=== PATIENT | female | born 1960 | race Caucasian/White ===

== ENCOUNTER → 2021-07-29 | Outpatient (CLI) | payer OTHER ==
--- NOTE | 2021-08-01 11:39 | MM ---
Reason for exam: clinical finding. Last mammogram was performed 1 year and 9 months ago. History: Patient is postmenopausal and has history of other cancer at age 28. Taking estrogen for 11 years. Taking progesterone for 11 years. Indicated problem(s): palpable abnormality and lump or thickening in the left breast. Physical Findings: A clinical breast exam by your physician is recommended on an annual basis and results should be correlated with mammographic findings. MG Diagnostic Mammo w CAD AUNG Bilateral CC and MLO view(s) were taken. XCCL view(s) were taken of the left breast. Prior study comparison: October 21, 2019, mammogram, performed at [facility]. October 02, 2016, mammogram, performed at [facility]. The breast tissue is heterogeneously dense. This may lower the sensitivity of mammography. Left axillary tail mass measuring 2.3 x 1.4cm This finding is changed when compared with previous exams. These results were verbally communicated with the patient and result sheet given to the patient on 07/29/21. ASSESSMENT: Incomplete: need additional imaging evaluation, BI-RAD 0 RECOMMENDATION: Ultrasound of the left breast. (palpable and axilla) Manage patient on a clinical basis.
--- NOTE | 2021-08-01 11:42 | USB ---
Reason for exam: additional evaluation requested from abnormal screening. History: Patient is postmenopausal and has history of other cancer at age 28. Taking estrogen for 11 years. Taking progesterone for 11 years. Physical Findings: A clinical breast exam by your physician is recommended on an annual basis and results should be correlated with mammographic findings. US Breast Limited LT Left limited breast ultrasound including focal area of concern, retroareolar and axilla demonstrates a 1.5 x 1.8 x 2.2cm hypoechoic lesion at 1 o'clock, 12cm from nipple for which a biopsy is recommended and a 2.2 x 1.0 x 2.1cm lymph node at the axilla for which a biopsy is recommended. These results were verbally communicated with the patient and result sheet given to the patient on 07/29/21. ASSESSMENT: Highly suggestive of malignancy, BI-RAD 5 RECOMMENDATION: Ultrasound core biopsy of the left breast. (x 2) Called Dr. Olmstead's office with mammographic findings and has scheduled an appointment for the patient for 08/19/21 at 9:[address] Saini. Biopsy scheduled for 08/08/21 at 12:00. PRELIMINARY REPORT CALLED AND FAXED TO DR. SAINI ON 08/01/21.
== END | disposition home or self-care (01) ==
LOC: RADMAMWWP 13:26
PROVIDERS: ATTEND Obstetrics & Gynecology
DX: N63.20 Unspecified lump in the left breast, unspecified quadrant (principal); Z78.0 Asymptomatic menopausal state
CPT/HCPCS: 77066

== ENCOUNTER → 2021-08-08 | Day surgery (SDC) | payer OTHER ==
[2021-08-08 12:29] VITALS: RESP 16
[2021-08-08 13:48] VITALS: BP 157/86; PULSE 93; TEMP 98.1
--- NOTE | 2021-08-08 16:26 | USB ---
EXAMINATION TYPE: US biopsy breast VAD LT, US biopsy breast add'l VAD LT, MG post biopsy diagnostic mammo LT wo CAD DATE OF EXAM: 08/08/2021 CLINICAL HISTORY: 61-year-old female R92.8 ABN MAMMO. Referred for ultrasound-guided to site left shashank ast biopsy TECHNIQUE: Ultrasound guided core biopsy of 2 sites in the left breast COMPARISON: 07/29/2021 FINDINGS: The procedure of ultrasound guided core biopsy was explained to the patient. Benefits, alt ernatives, and risks were discussed. An informed consent was then obtained. The patient was placed in supine positioning for imaging and for the procedure. The overlying skin w as prepped and draped in usual sterile fashion. Lidocaine was used as anesthetic into the skin at ea ch site in turn followed by lidocaine/epinephrine mixture into the subcutaneous tissue up to area of concern in the 1:00 zone C followed by the axillary lesions in the left breast. SITE 1, 1:00 zone C (more anterior): Under ultrasound guidance, a 13-gauge vacuum-assisted Mammotome Elite biopsy gun was used to obtain 4 core samples. Following this, a ribbon clip was left in lesion . SITE 2, Thickened axillary node (more posterior): Under ultrasound guidance, a 13-gauge vacuum-assist ed Mammotome Elite biopsy gun was used to obtain 6 core samples. Following this, a Hydromark clip wa s left in lesion. Both areas are highly suspicious. The patient tolerated the procedure well without any immediate complication. The patient was kept in the radiology department for short stay after the procedure and then discharged home in stable condi tion. Postbiopsy mammogram shows ribbon clip at the site of mammographic mass. There is increased trabecula r density within the axilla compatible with anesthetic injection but the hydroureter clip is beyond t he field of view. IMPRESSION: Successful, uncomplicated ultrasound guided core biopsy: 1. 1:00 zone C, BI-RADS 5 left breast mass (ribbon clip). 2. Suspicious, thickened left axillary lymph node (Hydromark clip). Full pathology results to follow.
== END | disposition home or self-care (01) ==
LOC: RADUSWWP 12:05
PROVIDERS: ATTEND Surgery
DX: R92.8 Other abnormal and inconclusive findings on diagnostic imaging of breast (principal)
CPT/HCPCS: 77065; 19083; 19084; A4648; J2001; 88305; 88341; 88342

== ENCOUNTER → 2021-08-19 | Outpatient (CLI) | payer OTHER ==
[2021-08-19 09:19] VITALS: BP 136/94; PULSE 61; RESP 18; TEMP 98.2
--- NOTE | 2021-08-19 10:37 | P.GSHP ---
History of Present Illness H&P Date: 08/19/21 Chief Complaint: Invasive ductal carcinoma left breast Jen is a 61 -year-old white female seen in consultation for Juani Ramos regarding a biopsy-proven invasive ductal carcinoma in her left breast. She felt the lesion approximately 6 weeks ago and subsequently underwent a mammogram and ultrasound. Mammogram did not reveal any additional lesions in the breast nor in the contralateral breast. The ultrasound core biopsy was performed on . Pathology revealed an invasive high grade ductal carcinoma with lobular-like features in the 1 o'clock position of the left breast. This is approximately 2.5 cm in size. Additionally the patient was noted to have a lymph node of concern in the left axilla and core biopsy was positive for metastatic disease in the lymph node. Her last mammogram prior to this was about two years ago. She states she may feel additional fullness in her left axilla. She has had no breast biopsies. She did have bilateral mastitis at the of her last child which was 20 years ago. Patient has been treated for Hodgkin's lymphoma at the age of 28. It was treated with MOPP, and radiation therapy. She has been disease free form this fro many years. She does not follow with anyone for this. caffeine: 5 cups/day nicotine: none, social when younger chocolate: weekly Family History: patient: hodgkins lymphoma father: melanoma paternal aunt: lung cancer smoker Hormonal History: menarche: 16 G5M1P4, breast fed: yes, age at first : 24 menopause: 41 BCP: none hormones: 50 bioidentical still on them Surgical History: biopsy for Hodgkins abdominalplasty eye lids lifted Medical History: hormones supplements Social History: nicotine: social in past alcohol: 1 1/2 bottle of wine/week drugs: none - Constitutional Constitutional: Denies chills, Denies fever - EENT Eyes: bilateral blurred vision, denies pain Ears: deny: decreased hearing, tinnitus Ears, nose, mouth and throat: Denies headache, Denies sore throat - Breasts Breasts: bilateral: as per HPI - Cardiovascular Cardiovascular: Denies chest pain, Denies shortness of breath - Respiratory Comment: can't take a deep breasth since radiation - Gastrointestinal Gastrointestinal: Reports diarrhea - Genitourinary (Female) Genitourinary: Denies dysuria, Denies hematuria - Menstruation Menstruation: Reports postmenopausal - Musculoskeletal Musculoskeletal: Denies myalgias - Integumentary Comment: back of head eczema Integumentary: Denies pruritus, Denies rash - Neurological Neurological: Denies numbness, Denies weakness - Psychiatric Psychiatric: Reports anxiety - Endocrine Endocrine: Denies fatigue, Denies weight change - Hematologic/Lymphatic Comment: spotting vaginal this has been for two weeks; wears a minni pad - Allergic/Immunologic Allergic/Immunologic: Reports as per HPI Past Medical History Past Medical History: Cancer Additional Past Medical History / Comment(s): Lymphoma. Thyroid History of Any Multi-Drug Resistant Organisms: None Reported Additional Past Surgical History / Comment(s): hodgkins lymphoma 1988. Chemo and radiation Past Anesthesia/Blood Transfusion Reactions: No Reported Reaction Past Psychological History: Anxiety Additional Psychological History / Comment(s): hx of anxiety with medications, not current Smoking Status: Never smoker Past Alcohol Use History: Occasional Past Drug Use History: None Reported Medications and Allergies Home Medications Medication Instructions Recorded Confirmed Type Estrogens, Conjugated [Premarin] 0.625 mg PO BID 08/08/21 08/19/21 History Progesterone, Micronized 100 mg PO BID 08/08/21 08/19/21 History [Progesterone] Thyroid, Pork [[place] Thyroid] 30 mg PO DAILY 08/08/21 08/19/21 History Sm Naturals Cream 0.25 tsp TOPICAL HS 08/19/21 08/19/21 History Allergies Allergy/AdvReac Type Severity Reaction Status Date / Time No Known Allergies Allergy Verified 08/19/21 09:16 Surgical - Exam Vital Signs Temp Pulse Resp BP Pulse Ox 98.2 F 61 18 136/94 100 08/19/21 09:16 08/19/21 09:16 08/19/21 09:16 08/19/21 09:16 08/19/21 09:16 BMI 23.6 - General no distress - Eyes normal ocular movement - Neck trachea midline - Respiratory normal respiratory effort, clear to auscultation - Cardiovascular Rhythm: regular Heart Sounds: normal: S1, S2 - Abdomen Abdomen: soft - Integumentary normal turgor - Neurologic no disoriented, no combative - Musculoskeletal normal gait - Psychiatric oriented to time, oriented to person, oriented to place, speech is normal, memory intact Brest Exam: BRA: 36C inspection: Bilateral grade 2 ptosis Palpation: Right breast: Multi-positional exam fibrocystic changes no discrete dominant masses or nodules of concern Right axilla: No adenopathy of concern Left breast: Multi-positional exam increased fullness upper-outer quadrant approximately 2 cm in size no other dominant masses or nodules of concern Left axilla: Positive adenopathy approximately 2 cm in size Results Mammogram reviewed in detail with Dr. Reid Assessment and Plan Assessment: Impression: 1. 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 Recent vaginal spotting patient is on bioidentical hormones Plan: Case was discussed with Dr. Gilbert. The patient is going to have neoadjuvant chemotherapy. Genetic testing as per Dr. Gilbert. The patient's case will be presented at tumor board on Sunday. Patient to follow up in 1 month. follow up on vaginal bleeding with Tonya Ramos/veterinary virologist CC: Betito Ramos
== END ==
LOC: WWCWWP 09:02
PROVIDERS: ATTEND Surgery
DX: C50.912 Malignant neoplasm of unspecified site of left female breast (principal); Z87.891 Personal history of nicotine dependence; F41.9 Anxiety disorder, unspecified; Z80.8 Family history of malignant neoplasm of other organs or systems; N93.9 Abnormal uterine and vaginal bleeding, unspecified; Z85.71 Personal history of Hodgkin lymphoma

== ENCOUNTER → 2021-08-26 | Outpatient (CLI) | payer OTHER ==
--- NOTE | 2021-08-28 21:55 | BMR ---
EXAMINATION TYPE: MR breast BILAT wo/w con DATE OF EXAM: 08/26/2021 COMPARISON: Bilateral breast mammogram July 29, 2021 BI-RADS 0. Left breast ultrasound July 29 BI-RADS 5. HISTORY: Breast Ca invasive high-grade ductal carcinoma with lobular-like features with positive left axillary metastatic cancer on biopsy August 08, 2021 TECHNIQUE: A series of fat and water weighted images in the long and short axis views of both breasts are obtained in conjunction with dynamic contrast MRI with subtraction technique. The patient was i njected with 7 mL intravenous Gadavist gadolinium contrast. Three-dimensional and additional postpr ocessing imaging is created on independent workstation and reviewed during official interpretation of this study. FINDINGS: Scattered fibroglandular tissue bilaterally is redemonstrated. T2 and STIR weighted images show no significant cystic change or focal fluid collections. Postcontrast imaging shows mild backgro und enhancement. Delayed dynamic imaging shows no suspicious internal mammary adenopathy. With regards to the right breast. There is no suspicious enhancement or enhancing mass. No abnormal s kin thickening. The chest wall is intact. With regards to the left breast there is 8 x 5 x 10 millimeter lesion in the central breast middle de pth approximately 5.5 cm distance from nipple of T1 hypointensity and T2 hyperintensity with suspicio us rapid enhancement and washout.For reference image 534 series 701. This lesion in retrospect is dipesh ntified on recent MLO and true lateral views less well seen on CC view. There is a second enhancing mass with lobulated margins corresponding to biopsy-proven malignancy isai suring 1.9 x 1.7 x 1.9 cm craniocaudal dimension axial image 720 postcontrast images and sagittal ruth ann ge 24 with artifact from biopsy clip in the inferior aspect of the lesion. This is in close proximity to the chest wall without definitive invasion. Superior and lateral to this there is 2.4 x 1.6 cm x 2.6 cm enhancing mass corresponds to biopsy-proven malignancy in the left axilla axial image 870 and sagittal image 18 with artifact from biopsy clip along the superior posterior aspect. No abnormal skin thickening in the left breast is present. No suspicious incidental findings. IMPRESSION: MRI shows 2 areas of recently biopsy-proven malignancy left breast posterior upper outer quadrant and axillary lymph node. Third suspicious lesion near 8 mm centrally in the left breast is p resent. No MRI evidence for invasive malignancy in the right breast. BI-RADS 1 negative study right breast. BI-RADS 6 biopsy-proven malignancy left breast. Recommendation: If conservation surgery is considered would advise sampling of third suspicious lesio n left breast. I would advise targeted ultrasound to further evaluate. If this is unsuccessful I woul d advise diagnostic spot mammogram imaging as this lesion is felt present in retrospect on true later al and MLO views recently obtained and not clearly seen on 2016 mammogram MLO view.
== END | disposition home or self-care (01) ==
LOC: RADMRIMAIN 12:46
PROVIDERS: ATTEND Internal Medicine Hematology & Oncology
DX: C50.412 Malignant neoplasm of upper-outer quadrant of left female breast (principal); C77.3 Secondary and unspecified malignant neoplasm of axilla and upper limb lymph nodes
CPT/HCPCS: 77049; C8937; A9585

== ENCOUNTER 2021-09-12 11:02 | Day surgery (SDC) | payer OTHER ==
[2021-09-09 09:19] VITALS: BMI 22.8
[2021-09-12] MEDS ORDERED: LACTATED RINGERS 1,000 ML IV SCH (11:49)
[2021-09-12] MEDS ORDERED: MIDAZOLAM 2 MG/2 ML VIAL IV PRN (11:49)
[2021-09-12] MEDS ORDERED: ONDANSETRON 4 MG/2 ML VIAL IVP ONE (11:49)
[2021-09-12] MEDS ORDERED: HYDROmorphone 0.5 MG/0.5 ML SYRINGE IVP PRN (11:49)
[2021-09-12] MEDS ORDERED: DEXAMETHASONE SOD PHOSPHATE 4 MG/ML 1 ML VIAL IV ONE (11:49)
[2021-09-12] MEDS ORDERED: LIDOCAINE 1% (10MG/ML) FOR IV START INTRADERMA PRN (11:49)
[2021-09-12] MEDS ORDERED: ONDANSETRON 4 MG/2 ML VIAL ONE (12:07)
[2021-09-12] MEDS ORDERED: LIDOCAINE 1% INJ 10MG/ML (20 ML MDV) ONE (12:30)
[2021-09-12] MEDS ORDERED: MIDAZOLAM 2 MG/2 ML VIAL ONE (12:30)
[2021-09-12] MEDS ORDERED: SUCCINYLCHOLINE CHLORIDE 100 MG/5 ML SYR IV ONE (12:30)
[2021-09-12] MEDS ORDERED: PHENYLEPHRINE-0.9% NACL SYG 1,000 MCG/10 ML SYRINGE ONE (12:30)
[2021-09-12] MEDS ORDERED: fentaNYL (PF) 50 MCG/ML 2 ML AMP ONE (12:30)
[2021-09-12] MEDS ORDERED: PROPOFOL 10 MG/ML 20 ML VIAL IV ONE (12:30)
[2021-09-12] MEDS ORDERED: IOPAMIDOL-370 50ML BTL IRRIGATION ONE (12:53)
[2021-09-12] MEDS ORDERED: BUPIVACAIN-EPI 0.25%-1:200,000 30 ML VIAL SQ ONE (12:53)
[2021-09-12] MEDS ORDERED: SODIUM CHLORIDE IV ONE ×2 (12:58)
[2021-09-12] MEDS ORDERED: HEPARIN SODIUM IV ONE ×2 (12:58)
--- NOTE | 2021-09-12 13:22 | P.OP ---
Date of Procedure: 09/12/21 Preoperative Diagnosis: Breast cancer, need for IV access Postoperative Diagnosis: Breast cancer, need for IV access Procedure(s) Performed: Port placement Anesthesia: SCOTTYA Surgeon: Judith Goncalves Estimated Blood Loss (ml): 2 Pathology: none sent Condition: stable Disposition: PACU Indications for Procedure: Patient needs a port for chemotherapy Description of Procedure: The patient's taken the operative suite where she is prepped and draped in the usual sterile manner under a general endotracheal anesthetic. Local anesthetic was instilled into the skin and subcutaneous tissue on the right chest wall near previous port scar. Local anesthetic was also instilled in the subcutaneous tissue going towards the clavicle, then above the clavicle and to use fingerbreadths posterior to the sternocleidomastoid muscle. An introducer needle was used to cannulate the internal jugular vein and there is noted to be a good back flash of dark red blood. A guidewire is placed through the introducer and Position is verified fluoroscopically A skin adriana is made near the introducer needle and an incision is made where the old scar is excised from the right chest wall. A catheter was tunneled between these 2 openings. A vessel dilator with breakaway sheath was placed over the guidewire and position was verified fluoroscopically. The dilator and guidewire were removed and the catheter was easily threaded into the superior vena cava. Position was verified fluoroscopically. A port pocket was developed on the anterior chest wall. The catheter was trimmed to size and attached to the previously flushed port. The port is secured to the anterior chest wall using 0 Vicryl. The skin incisions were closed with 4-0 Vicryl in a subcuticular manner. The port was accessed percutaneously and showed a good back flash of dark red blood and flushed easily with heparinized saline solution. Steri-Strips and dressings were applied she tolerated the procedure without difficulty and was taken to recovery room in satisfactory condition. According to or personnel, all counts were correct. Plan - Discharge Summary Discharge Rx Participant: Yes New Discharge Prescriptions: New traMADol HCL 1 - 2 mg PO Q6HR PRN #10 tablet PRN Reason: Pain No Action Vitamin C/Biotin [Hair, Skin and Nails Chew] 1 tab PO DAILY Vitamin B Complex 1 each PO DAILY Kelp 1 dose PO DAILY Iodine Gtts 1 dose PO DAILY Flaxseed Oil 1 dose PO DAILY Dim Supplement 1 dose PO DAILY Collagen Supplement 1 dose PO DAILY Co Q-10 (Unknown Dose) 1 dose PO DAILY Adrenal Support 1 dose PO DAILY Thyroid,Pork [Cochrane Thyroid] 90 mg PO DAILY Vitamin D Liquid 1 dose PO DAILY Turmeric (Unknown Dose) 1 dose PO DAILY Pregnenolone 1 dose PO DAILY Phosphocholine 1 dose PO DAILY Pantethine Supplement 1 dose PO DAILY Otc Progesterone Cream 1 applicate TOPICAL DIRECTED Otc Estrogen Cream 1 applicate TOPICAL DIRECTED Niacin 1 dose PO DAILY Lutein (Unknown Dose) 1 dose PO DAILY L.acidoph,Paracasei, B.lactis [Probiotic] 1 each PO DAILY L-Tyrosine Supplement 1 dose PO DAILY Glucosamine HCl/Chondroitin Jacobson [Glucosamine-Chondroitin Cap] 1 each PO DAILY Dhea Unknown Dose 1 dose PO DAILY Discharge Medication List Adrenal Support 1 dose PO DAILY 09/09/21 [History] Co Q-10 (Unknown Dose) 1 dose PO DAILY 09/09/21 [History] Collagen Supplement 1 dose PO DAILY 09/09/21 [History] Dhea Unknown Dose 1 dose PO DAILY 09/09/21 [History] Dim Supplement 1 dose PO DAILY 09/09/21 [History] Flaxseed Oil 1 dose PO DAILY 09/09/21 [History] Glucosamine HCl/Chondroitin Jacobson [Glucosamine-Chondroitin Cap] 1 each PO DAILY 09/09/21 [History] Iodine Gtts 1 dose PO DAILY 09/09/21 [History] Kelp 1 dose PO DAILY 09/09/21 [History] L-Tyrosine Supplement 1 dose PO DAILY 09/09/21 [History] L.acidoph,Paracasei, B.lactis [Probiotic] 1 each PO DAILY 09/09/21 [History] Lutein (Unknown Dose) 1 dose PO DAILY 09/09/21 [History] Niacin 1 dose PO DAILY 09/09/21 [History] Otc Estrogen Cream 1 applicate TOPICAL DIRECTED 09/09/21 [History] Otc Progesterone Cream 1 applicate TOPICAL DIRECTED 09/09/21 [History] Pantethine Supplement 1 dose PO DAILY 09/09/21 [History] Phosphocholine 1 dose PO DAILY 09/09/21 [History] Pregnenolone 1 dose PO DAILY 09/09/21 [History] Thyroid,Pork [Cochrane Thyroid] 90 mg PO DAILY 09/09/21 [History] Turmeric (Unknown Dose) 1 dose PO DAILY 09/09/21 [History] Vitamin B Complex 1 each PO DAILY 09/09/21 [History] Vitamin C/Biotin [Hair, Skin and Nails Chew] 1 tab PO DAILY 09/09/21 [History] Vitamin D Liquid 1 dose PO DAILY 09/09/21 [History] traMADol HCL 1 - 2 mg PO Q6HR PRN #10 tablet 09/12/21 [Rx] Activity/Diet/Wound Care/Special Instructions: Keep the dressing clean and dry until Sunday. The dressings may then be removed and you may shower. Remove the small tapes from the incisions in 1 week. Ice to the incision for 24-48 hours. Expect a small amount of bruising. Call if questions or concerns Discharge Disposition: HOME SELF-CARE
[2021-09-12 13:28] VITALS: TEMP 98
[2021-09-12 14:51] VITALS: BP 112/70; PULSE 86; RESP 17
--- NOTE | 2021-09-12 15:31 | FL ---
Fluoroscopy INDICATION: Pain FINDINGS: Fluoroscopy time: 10 seconds. Images obtained: 1. IMPRESSIONS: 1. Documentation of fluoroscopy.
== END 2021-09-12 14:55 | disposition home or self-care (01) ==
LOC: OR 11:02
PROVIDERS: ATTEND Surgery
DX: C50.112 Malignant neoplasm of central portion of left female breast (principal); E03.9 Hypothyroidism, unspecified; Z86.19 Personal history of other infectious and parasitic diseases; Z82.49 Family history of ischemic heart disease and other diseases of the circulatory system; Z79.890 Hormone replacement therapy; K21.9 Gastro-esophageal reflux disease without esophagitis
CPT/HCPCS: 77001; 36561; C1788; J2250; J1100; J0690; J2405; J2001; J3010; J1644; J2370; J0330; J2704; Q9967

== ENCOUNTER → 2021-09-30 | Outpatient (CLI) | payer OTHER ==
--- NOTE | 2021-09-30 13:12 | USB ---
Reason for exam: clinical finding. History: Patient is postmenopausal, has history of breast cancer at age 61, and has history of other cancer at age 28. Malignant US biopsy breast VAD LT of the left breast, August 08, 2021. Malignant US biopsy breast add'l VAD LT of the left breast, August 08, 2021. Taking estrogen for 11 years. Taking progesterone for 11 years. Physical Findings: A clinical breast exam by your physician is recommended on an annual basis and results should be correlated with mammographic findings. US Breast LT Left complete breast ultrasound includes all four quadrants, the retroareolar region and axilla. Finding demonstrates a 1.7 x 1.0 x 2.1cm lesion at 1 o'clock, a 2.6 x 1.6 x 2.3cm lesion at the axilla and a 0.5 x 0.6 x 0.6cm lesion at 3 o'clock for which a biopsy is recommended. Results were given to the patient verbally at the time of the exam. ASSESSMENT: Suspicious, BI-RAD 4 RECOMMENDATION: Ultrasound core biopsy of the left breast. Called Dr. Orozco's office with mammographic findings and left a message. PRELIMINARY REPORT CALLED AND FAXED TO DR. OROZCO ON 09/30/21.
== END | disposition home or self-care (01) ==
LOC: RADUSWWP 09:09
PROVIDERS: ATTEND Surgery
DX: N64.89 Other specified disorders of breast (principal); Z78.0 Asymptomatic menopausal state; Z85.3 Personal history of malignant neoplasm of breast

== ENCOUNTER → 2021-10-13 | Day surgery (SDC) | payer OTHER ==
--- NOTE | 2021-10-20 12:06 | USB ---
Reason for Exam: Clinical finding. Last screening mammogram was performed 2 month(s) ago. Patient History: Menarche at age 16. First Full-Term at age 24. Postmenopausal. Other cancer, age 28. Breast cancer, age 61. Currently using Estrogen, for 11 years. Currently using Progesterone, for 11 years. 08/08/2021, Malignant Core Biopsy on the left side. 08/08/2021, Malignant Core Biopsy on the left side. Prior Study Comparison: 10/21/2019 Screening Mammogram, [facility]. 07/29/2021 Bilateral Diagnostic Mammogram, [facility]. 08/08/2021 Left Diagnostic Mammogram, [facility]. Tissue Density: Left: The breast tissue is heterogeneously dense. This may lower the sensitivity of mammography. Pathology Description: Location: 3 o'clock, posterior. Marker Left Behind. Needle Type: Mammotone Cores: 4 Skin Nicks: 1 Gauge: 13 The procedure of ultrasound guided core biopsy was explained to the patient. Benefits, alternatives, and risks were discussed. An informed consent was then obtained. The patient was placed in supine positioning for imaging and for the procedure. The overlying skin was prepped and draped in usual sterile fashion. Lidocaine was used as anesthetic into the skin and subcutaneous tissue up to area of concern in the left breast. A adriana was made with surgical scalpel. Lidocaine was utilized to carefully left lesion from the chest wall. Under ultrasound guidance, a 12-gauge vacuum assisted biopsy gun device was placed under the lesion for core markers were obtained. [place] darion was placed at the biopsy site. Clip was placed but appears to be out of the [id number] on the postprocedure mammogram. Clip is evident on the ultrasound images. The patient tolerated the procedure well without any immediate complication. The patient was kept in the radiology department for short stay after the procedure and then discharged home in stable condition. Impression: 1. Successful biopsy left breast 3:00 position 5 cm from the nipple adjacent to the chest wall. Pathology Results: Result: Benign, Fat necrosis. LEFT BREAST, THREE O'CLOCK, ULTRASOUND GUIDED NEEDLE CORE BIOPSY: Scar/fibrosis with inflammation, histiocytes and fat necrosis. Negative for malignancy. See note. Overall Assessment: Benign Assessment: MG diagnostic mammo LT wo CAD. - Left: Benign, BI-RAD 2. Management: Surgical Consultation of the left breast. Appropriate surgical and oncologic management. Electronically signed and approved by: Sunday Reid D.O. Radiologis
== END ==
LOC: RADUSWWP 09:34
PROVIDERS: ATTEND Surgery
DX: N60.32 Fibrosclerosis of left breast (principal); N64.1 Fat necrosis of breast; R92.8 Other abnormal and inconclusive findings on diagnostic imaging of breast
CPT/HCPCS: 88305; 88342; 88341; 77065; 19083; A4648

== ENCOUNTER → 2021-11-29 | Outpatient (CLI) | payer BC, OTHER ==
--- NOTE | 2021-11-29 14:17 | MM ---
Reason for Exam: Follow-up at short interval from prior study. Last screening mammogram was performed 4 month(s) ago. Patient History: Menarche at age 16. First Full-Term at age 24. Postmenopausal. Other cancer, age 28. Breast cancer, age 61. Previous chest radiation therapy at age 28. Previous chemotherapy at age 28. Patient used Estrogen for 11 years. Patient used Progesterone for 11 years. 10/13/2021, Benign US biopsy breast VAD LT on the left side. 08/08/2021, Malignant Core Biopsy on the left side. 08/08/2021, Malignant Core Biopsy on the left side. Prior Study Comparison: 10/02/2016 Screening Mammogram, [facility]. 10/21/2019 Screening Mammogram, [facility]. 07/29/2021 Bilateral Diagnostic Mammogram, [facility]. 07/29/2021 Left Diagnostic Ultrasound, [facility]. 08/08/2021 Left Diagnostic Mammogram, [facility]. 08/26/2021 Bilateral Diagnostic Breast MRI, [facility]. 09/30/2021 Left Diagnostic Ultrasound, [facility]. 10/13/2021 Left MG diagnostic mammo LT wo CAD., [facility]. Tissue Density: The breast tissue is heterogeneously dense. This may lower the sensitivity of mammography. Findings: Analyzed By CAD. No new mass is identified. No evidence for distortion. Microclip noted upper-outer left breast and left axilla. No suspicious calcifications. Overall Assessment: Known biopsy proven malignancy, BI-RAD 6 Management: Diagnostic Mammogram of both breasts in 1 year. A clinical breast exam by your physician is recommended on an annual basis and results should be correlated with mammographic findings. This exam should not preclude additional follow-up of suspicious palpable abnormalities. Results were given to the patient verbally at the time of exam. Electronically signed and approved by: Jason Case M.D. Radiologis
== END | disposition home or self-care (01) ==
LOC: RADMAMWWP 13:31
PROVIDERS: ATTEND Internal Medicine Hematology & Oncology
DX: R92.8 Other abnormal and inconclusive findings on diagnostic imaging of breast (principal); Z78.0 Asymptomatic menopausal state; Z85.3 Personal history of malignant neoplasm of breast
CPT/HCPCS: 77062; 77066